=== PATIENT | female | born 1930 | race Caucasian/White ===

== ENCOUNTER 2016-03-23 07:22 | Emergency (ER) | payer OTHER ==
[2016-03-23 07:30] VITALS: TEMP 97.7
--- NOTE | 2016-03-23 07:52 | CPEKG ---
Heart Rate: 77 RR Interval: 779 QRSD Interval: 82 QT Interval: 392 QTC Interval: 444 QRS [place]: 8 T Wave [place]: 17 EKG Severity - ABNORMAL ECG - EKG Impression: ATRIAL FIBRILLATION, V-RATE 65-91 EKG Impression: LOW VOLTAGE IN FRONTAL LEADS EKG Impression: similar to previous Electronically Signed By: Jose Harris 23-Mar-2016 08:05:51
--- NOTE | 2016-03-23 08:07 | EDPHY ---
H & P Stated Complaint: hbp and epigastric pain Time Seen by Provider: 03/23/16 07:53 HPI/ROS: CHIEF COMPLAINT: Epigastric pain HISTORY OF PRESENT ILLNESS: The patient is a 86-year-old female who comes to the emergency department this morning complaining that she had elevated blood pressure and epigastric pain all night. It kept her awake throughout the night doing crossword puzzles. She has a history of high blood pressure and takes losartan 50 mg twice daily as well as Lopressor 50 mg twice daily. She took her normal doses yesterday but noticed that hurt diastolic blood pressure was 1/ 25. It seemed to improve before she went to bed. She also complained of mild epigastric pain which she is not used to. She that maybe it was heartburn or her gallbladder. She does take Coumadin for history of atrial fibrillation. Her symptoms resolved around 7:00 a.m. this morning when she arrived at the emergency department. She denies shortness of breath or diaphoresis. Is not worsened by exertion. No vomiting or diarrhea REVIEW OF SYSTEMS: Constitutional: denies: chills, fever, recent illness, recent injury EENTM: denies: blurred vision, double vision, nose congestion Respiratory: denies: cough, shortness of breath Cardiac: See HPI Gastrointestinal/Abdominal: See HPI Genitourinary: denies: dysuria, frequency, hematuria, pain Musculoskeletal: denies: joint pain, muscle pain Skin: denies: lesions, rash, jaundice, bruising Neurological: denies: headache, numbness, paresthesia, tingling, dizziness, weakness Hematologic/Lymphatic: denies: blood clots, easy bleeding, easy bruising Immunologic/allergic: denies: HIV/AIDS, transplant EXAM: GENERAL: Well-appearing, obese. HEAD: Atraumatic, normocephalic. EYES: Pupils equal round and reactive to light, extraocular movements intact, sclera anicteric, conjunctiva are normal. ENT: TMs normal, nares patent, oropharynx clear without exudates. Moist mucous membranes. NECK: Normal range of motion, supple without lymphadenopathy or JVD. LUNGS: Breath sounds clear to auscultation bilaterally and equal. No wheezes rales or rhonchi. HEART: Regular rate and rhythm without murmurs, rubs or gallops. ABDOMEN: Soft, nontender, normoactive bowel sounds. No guarding, no rebound. No masses appreciated. BACK: No CVA tenderness, no spinal tenderness, step-offs or deformities EXTREMITIES: Normal range of motion, no pitting or edema. No clubbing or cyanosis. NEUROLOGICAL: Cranial nerves II through XII grossly intact. Normal speech, normal gait. 5/5 strength, normal movement in all extremities, normal sensation PSYCH: Normal mood, normal affect. SKIN: Warm, dry, normal turgor, no visible rashes or lesions. Source: Patient Exam Limitations: No limitations - Personal History Current Tetanus/Diphtheria Vaccine: Unsure Tetanus Vaccine Date: < 10 YEARS - Medical/Surgical History Hx Asthma: No Hx Chronic Respiratory Disease: No Hx Diabetes: No Hx Cardiac Disease: Yes Hx Renal Disease: No Hx Cirrhosis: No Hx Alcoholism: No Hx HIV/AIDS: No Hx Splenectomy or Spleen Trauma: No Other PMH: SEPIDEH, A-FIB, "INTESTINAL BLOOD CLOT" , HTN, HYPERLIPIDEMIA - Family History Significant Family History: Hypertension - Social History Smoking Status: Never smoked Alcohol Use: None Drug Use: None Constitutional: Initial Vital Signs Temperature (C) 36.5 C 03/23/16 07:27 Heart Rate 112 H 03/23/16 07:27 Respiratory Rate 20 03/23/16 07:27 Blood Pressure 159/107 H 03/23/16 07:27 O2 Sat (%) 93 03/23/16 07:27 O2 Delivery Mode Room Air Allergies/Adverse Reactions: atorvastatin calcium [From Lipitor] Allergy (Intermediate, Verified 03/23/16 07: 24) Muscle Aches Mbyztmu-Dpn-Zuz Reductase Inhibitor Allergy (Intermediate, Verified 03/23/16 07: 24) Muscle Aches Home Medications: Medication Instructions Recorded Aspirin [Aspirin 81mg (*)] 81 mg PO DAILY 09/27/14 Herbals/Supplements -Info Only 1 ea PO DAILY 09/27/14 Losartan Potassium [Cozaar] 50 mg PO BID 09/27/14 Magnesium Oxide [Magnesium Oxide 250 mg PO DAILY 09/27/14 500 mg] Metoprolol Tartrate [Lopressor 50 50 mg PO BID 09/27/14 mg (*)] Tears/Hypromellose [Natural 1 - 2 drops EACHEYE DAILY PRN 09/27/14 Balance] Vit C/Dl-E AC/Lut/Copper/Znox 1 each PO DAILY 09/27/14 [Preservision Softgel] Warfarin Sodium [Coumadin 5MG (*)] 5 mg PO DAILY16 09/27/14 Furosemide [Lasix 20 MG (*)] 20 mg PO DAILY #0 tab 09/28/14 Medical Decision Making - Diagnostics EKG Interpretation: An EKG obtained and was read and documented in trace view. Please see trace view for full reading and report. Atrial fibrillation, unchanged from previous , rate 77 Imaging: X-ray: chest x-ray was obtained. I viewed the images myself on the PACS system. My interpretation of the images is: No infiltrate. The radiologist interpretation is mild cardiomegaly, peribronchial thickening. ED Course/Re-evaluation: 9:15 a.m. Patient remains asymptomatic. We discussed her lab work and EKG which are reassuring. She is eager to go home. She declines further workup or testing. She thinks she had heartburn and will try taking Tums next time. She will follow up with Dr. Thomas. Discussed indications for returning to the emergency department. Negative troponin is reassuring considering the duration of her symptoms. Differential Diagnosis: Partial list of the Differential diagnosis considered include but were not limited to; acute coronary disease, arrhythmia, indigestion, peptic ulcer disease and although unlikely based on the history and physical exam, I also considered biliary disease, pancreatitis, liver disease, pneumonia, PE . I discussed these differential diagnoses and the plan with the patient as well as the usual and expected course. The patient understands that the diagnosis is provisional and that in medicine we are not always correct and that further workup is often warranted. Usual and customary warnings were given. All of the patient's questions were answered. The patient was instructed to return to the emergency department should the symptoms at all worsen or return, otherwise to followup with the physician as we discussed. - Data Points Laboratory Results: Laboratory Results 03/23/16 08:35 03/23/16 08:35 03/23/16 08:35 WBC 6.97 10^3/uL (3.80-9.50) RBC 4.26 10^6/uL (4.18-5.33) Hgb 12.7 g/dL (12.6-16.3) Hct 37.9 L % (38.0-47.0) MCV 89.0 fL (81.5-99.8) MCH 29.8 pg (27.9-34.1) MCHC 33.5 g/dL (32.4-36.7) RDW 14.6 % (11.5-15.2) Plt Count 155 10^3/uL (150-400) MPV 12.9 H fL (8.7-11.7) Neut % (Auto) 81.4 H % (39.3-74.2) Lymph % (Auto) 9.5 L % (15.0-45.0) Jack % (Auto) 7.3 % (4.5-13.0) Eos % (Auto) 0.9 % (0.6-7.6) Baso % (Auto) 0.6 % (0.3-1.7) Nucleat RBC Rel Count 0.0 % (0.0-0.2) Absolute Neuts (auto) 5.68 10^3/uL (1.70-6.50) Absolute Lymphs (auto) 0.66 L 10^3/uL (1.00-3.00) Absolute Monos (auto) 0.51 10^3/uL (0.30-0.80) Absolute Eos (auto) 0.06 10^3/uL (0.03-0.40) Absolute Basos (auto) 0.04 10^3/uL (0.02-0.10) Absolute Nucleated RBC 0.00 10^3/uL (0-0.01) Immature Gran % 0.3 % (0.0-1.1) Immature Gran # 0.02 10^3/uL (0.00-0.10) Sodium 139 mEq/L (134-144) Potassium 4.6 mEq/L (3.5-5.2) Chloride 102 mEq/L (97-110) Carbon Dioxide 24 mEq/l (22-31) Anion Gap 13 mEq/L (8-16) BUN 27 H mg/dL (7-23) Creatinine 0.8 mg/dL (0.6-1.0) Estimated GFR > 60 Glucose 172 H mg/dL (70-100) Calcium 9.7 mg/dL (8.5-10.4) Total Bilirubin 0.7 mg/dL (0.1-1.4) Conjugated Bilirubin 0.2 mg/dL (0.0-0.5) Unconjugated Bilirubin 0.5 mg/dL (0.0-1.1) AST 20 IU/L (14-46) ALT 36 IU/L (9-52) Alkaline Phosphatase 69 IU/L (38-126) Troponin I < 0.012 ng/mL (0-0.034) Total Protein 7.2 g/dL (6.3-8.2) Albumin 4.1 g/dL (3.5-5.0) Lipase 30.0 IU/L (23-300) Departure - Departure Disposition: Home, Routine, Self-Care Clinical Impression: Epigastric abdominal pain Condition: Fair Instructions: Epigastric Pain (ED) Referrals: Heber Thomas MD [Primary Care Provider] - As per Instructions
[2016-03-23 08:42] LABS: % IMMATURE GRANULYOCYTES 0.3 % (0.0-1.1); ABSOLUTE IMMATURE GRANULOCYTES 0.02 10^3/uL (0.00-0.10); ADD DIFF? NO; ADD MORPH? NO; ADD SCAN? NO; ATYPICAL LYMPHOCYTE FLAG 0 (0-99); FRAGMENT RBC FLAG 0 (0-99); HEMATOCRIT 37.9 % (38.0-47.0); HEMOGLOBIN 12.7 g/dL (12.6-16.3); LEFT SHIFT FLG 0 (0-99); LIPEMIA HEMOLYSIS FLAG 80 (0-99); MEAN CELL HEMOGLOBIN 29.8 pg (27.9-34.1); MEAN CELL HEMOGLOBIN CONCENTR. 33.5 g/dL (32.4-36.7); MEAN PLATELET VOLUME 12.9 fL (8.7-11.7); PLATELET CLUMPS FLAG 0 (0-99); PLATELET COUNT 155 10^3/uL (150-400); RED BLOOD CELL COUNT 4.26 10^6/uL (4.18-5.33); RED CELL DISTRIBUTION WIDTH 14.6 % (11.5-15.2)
[2016-03-23 08:54] LABS: ALANINE AMINOTRANSFERASE 36 IU/L (9-52); ALBUMIN 4.1 g/dL (3.5-5.0); ALKALINE PHOSPHATASE 69 IU/L (38-126); ANION GAP 13 mEq/L (8-16); ASPARTATE AMINOTRANSFERASE 20 IU/L (14-46); BILIRUBIN,TOTAL 0.7 mg/dL (0.1-1.4); BILIRUBIN-CONJUGATED 0.2 mg/dL (0.0-0.5); BILIRUBIN-UNCONJUGATED 0.5 mg/dL (0.0-1.1); CALCIUM 9.7 mg/dL (8.5-10.4); CARBON DIOXIDE 24 mEq/l (22-31); CHLORIDE 102 mEq/L (97-110); CREATININE 0.8 mg/dL (0.6-1.0); GLOMERULAR FILTRATION RATE > 60; GLUCOSE 172 mg/dL (70-100); POTASSIUM 4.6 mEq/L (3.5-5.2); SODIUM 139 mEq/L (134-144); TOTAL PROTEIN 7.2 g/dL (6.3-8.2)
--- NOTE | 2016-03-23 08:56 | DX ---
Chest, PA Upright and Lateral Views March 23, 2016, at 7:52 a.m. Clinical History: 86-year-old female with shortness of breath, and a rapid heart beat and chest pain. Comparison Study: Chest, dated 09/27/2014. Findings: The cardiac silhouette remains enlarged. There is peribronchial thickening and mild pulmona ry venous hypertension. There is no focal alveolar consolidation or pleural effusion. A retrocardiac hiatal hernia is seen with an air-fluid level. There is mild eventration of the anterior right hemidi aphragm. There is some linear scarring in the left midlung. There is no pneumothorax. Mild biapical p leural thickening is seen. There is a thoracolumbar junction kyphosis with multilevel degenerative ch reji. Impression: 1. Cardiomegaly with peribronchial thickening, and mild pulmonary venous hypertension. 2. Linear scarring in the left midlung. 3. Large retrocardiac hiatal hernia.
[2016-03-23 09:05] LABS: TROPONIN I < 0.012 ng/mL (0-0.034)
[2016-03-23 09:25] VITALS: BP 157/86; PULSE 76; RESP 18; O2SAT 96
== END 2016-03-23 09:25 | disposition home or self-care (01) ==
DX: R10.13 Epigastric pain (principal); I10 Essential (primary) hypertension; Z79.01 Long term (current) use of anticoagulants; Z79.82 Long term (current) use of aspirin

== ENCOUNTER → 2016-04-23 | Outpatient (CLI) | payer OTHER | LOC: BMCIMAGING 11:07 | PROVIDERS: ATTEND Internal Medicine | DX: Z13.820 Encounter for screening for osteoporosis (principal); M85.80 Other specified disorders of bone density and structure, unspecified site ==

== ENCOUNTER → 2016-05-20 | Outpatient (CLI) | payer OTHER | LOC: BMCIMAGING 14:24 | PROVIDERS: ATTEND Podiatrist Foot & Ankle Surgery | DX: Z03.89 Encounter for observation for other suspected diseases and conditions ruled out (principal); M19.071 Primary osteoarthritis, right ankle and foot ==

== ENCOUNTER 2016-09-06 18:53 | Emergency (ER) | payer OTHER ==
[2016-09-06 19:20] VITALS: BP 150/101; PULSE 78; RESP 16; TEMP 98.2; O2SAT 91
--- NOTE | 2016-09-06 20:11 | EDPHY ---
H & P Stated Complaint: pt says she accidentally poked her fingernail into L eye, blood in sclera Time Seen by Provider: 09/06/16 20:02 HPI/ROS: CHIEF COMPLAINT: Subconjunctival hemorrhage HISTORY OF PRESENT ILLNESS: Patient is an 86-year-old female who comes to the emergency department complaining of a subconjunctival hemorrhage. It developed about an hour ago after she accidentally poked herself the corner of her left eye. It is not circumferential. She denies pain. She denies vision changes. She denies headache. She takes warfarin for history of atrial fibrillation. She had her INR checked last week and states that it was appropriate. She has not had any medication changes recently and states that her INR is very stable. REVIEW OF SYSTEMS: Constitutional: denies: chills, fever, recent illness, recent injury EENTM: See HPI denies: blurred vision, double vision, nose congestion Respiratory: denies: cough, shortness of breath Cardiac: denies: chest pain, irregular heart rate, lightheadedness, palpitations Gastrointestinal/Abdominal: denies: abdominal pain, diarrhea, nausea, vomiting, blood streaked stools Genitourinary: denies: dysuria, frequency, hematuria, pain Musculoskeletal: denies: joint pain, muscle pain Skin: denies: lesions, rash, jaundice, bruising Neurological: denies: headache, numbness, paresthesia, tingling, dizziness, weakness Hematologic/Lymphatic: denies: blood clots, easy bleeding, easy bruising Immunologic/allergic: denies: HIV/AIDS, transplant EXAM: GENERAL: Well-appearing, well-nourished and in no acute distress. HEAD: Atraumatic, normocephalic. EYES: Pupils equal round and reactive to light, extraocular movements intact, circumferential subconjunctival hematoma, normal cornea, normal retina, conjunctiva are normal. ENT: TMs normal, nares patent, oropharynx clear without exudates. Moist mucous membranes. NECK: Normal range of motion, supple without lymphadenopathy or JVD. LUNGS: Breath sounds clear to auscultation bilaterally and equal. No wheezes rales or rhonchi. HEART: Regular rate and rhythm without murmurs, rubs or gallops. ABDOMEN: Soft, nontender, normoactive bowel sounds. No guarding, no rebound. No masses appreciated. BACK: No CVA tenderness, no spinal tenderness, step-offs or deformities EXTREMITIES: Normal range of motion, no pitting or edema. No clubbing or cyanosis. NEUROLOGICAL: Cranial nerves II through XII grossly intact. Normal speech, normal gait. 5/5 strength, normal movement in all extremities, normal sensation PSYCH: Normal mood, normal affect. SKIN: Warm, dry, normal turgor, no visible rashes or lesions. Source: Patient, Family Exam Limitations: No limitations - Personal History Tetanus Vaccine Date: < 10 YEARS - Medical/Surgical History Hx Asthma: No Hx Chronic Respiratory Disease: No Hx Diabetes: No Hx Cardiac Disease: Yes Hx Renal Disease: No Hx Cirrhosis: No Hx Alcoholism: No Hx HIV/AIDS: No Hx Splenectomy or Spleen Trauma: No Other PMH: SEPIDEH, A-FIB, "INTESTINAL BLOOD CLOT" , HTN, HYPERLIPIDEMIA - Family History Significant Family History: No pertinent family hx - Social History Smoking Status: Never smoked Alcohol Use: Sober Drug Use: None Constitutional: Initial Vital Signs Temperature (C) 36.8 C 09/06/16 19:16 Heart Rate 78 09/06/16 19:16 Respiratory Rate 16 09/06/16 19:16 Blood Pressure 150/101 H 09/06/16 19:16 O2 Sat (%) 91 L 09/06/16 19:16 O2 Delivery Mode Room Air Allergies/Adverse Reactions: atorvastatin calcium [From Lipitor] Allergy (Intermediate, Verified 09/06/16 19: 20) Muscle Aches Khtvsgi-Ypt-Kwt Reductase Inhibitor Allergy (Intermediate, Verified 09/06/16 19: 20) Muscle Aches Home Medications: Medication Instructions Recorded Aspirin [Aspirin 81mg (*)] 81 mg PO DAILY 09/27/14 Herbals/Supplements -Info Only 1 ea PO DAILY 09/27/14 Losartan Potassium [Cozaar] 50 mg PO BID 09/27/14 Magnesium Oxide [Magnesium Oxide 250 mg PO DAILY 09/27/14 500 mg] Metoprolol Tartrate [Lopressor 50 50 mg PO BID 09/27/14 mg (*)] Tears/Hypromellose [Natural 1 - 2 drops EACHEYE DAILY PRN 09/27/14 Balance] Vit C/Dl-E AC/Lut/Copper/Znox 1 each PO DAILY 09/27/14 [Preservision Softgel] Warfarin Sodium [Coumadin 5MG (*)] 5 mg PO DAILY16 09/27/14 Furosemide [Lasix 20 MG (*)] 20 mg PO DAILY #0 tab 09/28/14 Medical Decision Making ED Course/Re-evaluation: The patient has a subconjunctival hematoma, no vision changes. No corneal abrasion, we discussed treatment with eyedrops and follow up with her carbon dioxide operator next week. She is happy with this and declines further workup or testing. Differential Diagnosis: Partial list of the Differential diagnosis considered include but were not limited to; subconjunctival hemorrhage, corneal abrasion and although unlikely based on the history and physical exam, I also considered retinal detachment, glaucoma, intracranial hemorrhage. I discussed these differential diagnoses and the plan with the patient as well as the usual and expected course. The patient understands that the diagnosis is provisional and that in medicine we are not always correct and that further workup is often warranted. Usual and customary warnings were given. All of the patient's questions were answered. The patient was instructed to return to the emergency department should the symptoms at all worsen or return, otherwise to followup with the physician as we discussed. Departure - Departure Disposition: Home, Routine, Self-Care Clinical Impression: Subconjunctival hemorrhage of left eye Condition: Fair Instructions: Subconjunctival Hemorrhage (ED) Referrals: Jigna Charles MD [Primary Care Provider] - As per Instructions
== END 2016-09-06 20:12 | disposition home or self-care (01) ==
DX: S05.92XA Unspecified injury of left eye and orbit, initial encounter (principal); I10 Essential (primary) hypertension; Z79.01 Long term (current) use of anticoagulants; Z79.82 Long term (current) use of aspirin; X58.XXXA Exposure to other specified factors, initial encounter

== ENCOUNTER → 2016-10-27 | Outpatient (CLI) | payer OTHER | LOC: FIMAGING 10:56 | PROVIDERS: ATTEND Internal Medicine | DX: E83.52 Hypercalcemia (principal); E21.3 Hyperparathyroidism, unspecified | CPT/HCPCS: 78070; A9500 ==

== ENCOUNTER → 2016-11-02 | Outpatient (CLI) | payer OTHER | LOC: BMCIMAGING 15:03 | PROVIDERS: ATTEND Internal Medicine Endocrinology, Diabetes & Metabolism | DX: E04.9 Nontoxic goiter, unspecified (principal) | CPT/HCPCS: 76536-PO ==

== ENCOUNTER → 2017-04-18 | Outpatient (CLI) | payer OTHER | LOC: BMCIMAGING 16:00 | PROVIDERS: ATTEND Family Medicine | DX: J40 Bronchitis, not specified as acute or chronic (principal); K44.9 Diaphragmatic hernia without obstruction or gangrene; I50.9 Heart failure, unspecified; I27.20 Pulmonary hypertension, unspecified ==

== ENCOUNTER 2018-01-29 11:39 | Emergency (ER) | payer OTHER ==
[2018-01-29] MEDS ORDERED: NS 500 ML IV ONE (12:08)
[2018-01-29 12:57] LABS: PLATELET COUNT 137 10^3/uL (150-400)
[2018-01-29 13:05] LABS: INR 3.15 (0.83-1.16); PROTIME(PATIENT) 32.2 SEC (12.0-15.0)
--- NOTE | 2018-01-29 13:40 | EDPHY ---
HPI/HX/ROS/PE/MDM Narrative: CLINICAL IMPRESSION: Intermittent diarrhea, supratherapeutic INR ASSESSMENT/PLAN: 87-year-old female presents to the emergency department with complaints of intermittent nonbloody diarrhea for the last 2 weeks. No associated abdominal pain, nausea, vomiting, fever, chills, UTI symptoms or flank pain. Patient was unable to provide urine and stool in the ED. Labs are reassuring, no evidence of leukocytosis, renal insufficiency, electrolyte imbalance or metabolic disturbance. Abdomen is soft with no focal peritoneal findings. Vital signs stable. I encouraged patient to see her primary care provider in the next 24- 48 hours. Stool collection kit and GI pathogen order form given to the patient for collection at home and return to laboratory. She was found to be supratherapeutic on her INR at 3.5. She did take today's dose already and I recommend she stop tomorrow's dose and contact PCP for further recommendations. Her daughter is with her today and lives with her and is in agreement to discharge recommendations. Warning signs return to ED sooner outlined in person and discharge papers. DIFFERENTIAL DX: Abdominal pain includes but not limited to urinary tract infection, pyelonephritis, infection, ovarian torsion, ovarian cyst, uterine fibroids, acute appendicitis, acute diverticulitis, small-bowel obstruction, constipation , diarrhea, infectious diarrhea, dehydration, electrolyte imbalance ED PROCEDURES: See lab results below ED COURSE: 1:30 p.m.: Patient reassessed, labs reviewed, no evidence of a renal insufficiency, electrolyte imbalance, metabolic disturbance. Patient continues to feel well. She is complaining of a mild headache but does not want Tylenol for this. She will try to give a urine sample but has been unsuccessful in providing stool sample. Will send with stool collection kit and orders. Encouraged PCP recheck tomorrow. Patient is also slightly supratherapeutic on her INR at 3.5. I recommend she not take tomorrow's dose and contact her PCP for further directions. Patient already took today's dose of Coumadin. 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 No associated nausea, vomiting, unexplained weight loss, UTI symptoms, abdominal pain or flank pain. She has not seen her primary care provider for this. She has been intermittently using Pepto-Bismol but stops because her stools turned dark colored. She has not seen bright red stools. She does not currently have dark stools and is not currently taking Pepto-Bismol. She has not traveled recently. No recent antibiotics or new medications. She did however recently start metformin. She has been able to stay well-hydrated. 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 ENT: No sore throat, congestion, ear pain. Cardiovascular: No chest pain, no palpitations. Respiratory: No cough, no shortness of breath. Gastrointestinal: No abdominal pain, no vomiting, + diarrhea. Genitourinary: No hematuria, dysuria, flank pain, pelvic pain Musculoskeletal: No back pain, joint swelling, joint pain, myalgias. Skin: No rashes, color change. Neurological: No headache, dizziness, weakness. PHYSICAL EXAM: General Appearance: Alert, oriented, appropriate, cooperative, NAD, well hydrated, non-toxic appearing, VSS, no hypoxia, obese. HEENT: Oropharynx clear is no erythema or exudates, no tonsillar hypertrophy or asymmetry. Dentition without abnormality. Neck: Supple, nontender, no lymphadenopathy, no midline pain, FROM, no meningismus. Respiratory: There are no retractions, lungs are clear to auscultation. Cardiac: Regular rate and rhythm, no murmurs or gallops. Gastrointestinal: Abdomen is soft, nontender, bowel sounds normal, no masses/ hernia, no rigidity, guarding or focal peritoneal findings. Neurological: Alert and oriented x 3, CN 2-12 grossly intact, normal gait no ataxia, DTR's intact, normal sensation and strength Skin: Warm, dry, no rashes, no nodules on palpation. Musculoskeletal: Extremities are symmetrical, full range of motion, no tenderness, deformity, swelling, or erythema. Psychiatric: Patient is oriented X 3, there is no agitation. MEDICAL DECISION MAKING: Patient was seen independently. Secondary supervising physician at time of evaluation was Dr. Sorenson . Diagnosis: Intermittent diarrhea x2 weeks, supratherapeutic INR. New, requires workup Summary: See Assessment and Plan for summary of ED visit Clinical lab tests: ordered / reviewed. Decision to obtain medical records or history from someone other than the patient: Patient's daughter Patient Progress: Stable. - Data Points Laboratory Results: Laboratory Results 01/29/18 12:48 01/29/18 12:48 01/29/18 01/29/18 12 12:48 12:48 12:48 WBC 4.53 10^3/uL 10^3/uL (3.80-9.50) RBC 4.27 10^6/uL 10^6/uL (4.18-5.33) Hgb 12.6 g/dL g/dL (12.6-16.3) Hct 39.5 % % (38.0-47.0) MCV 92.5 fL fL (81.5-99.8) MCH 29.5 pg pg (27.9-34.1) MCHC 31.9 g/dL L g/dL (32.4-36.7) RDW 14.6 % % (11.5-15.2) Plt Count 137 10^3/uL L 10^3/uL (150-400) MPV 12.7 fL H fL (8.7-11.7) Neut % (Auto) 76.0 % H % (39.3-74.2) Lymph % (Auto) 13.2 % L % (15.0-45.0) [place] % (Auto) 9.3 % % (4.5-13.0) Eos % (Auto) 1.1 % % (0.6-7.6) Baso % (Auto) 0.2 % L % (0.3-1.7) Nucleat RBC Rel Count 0.0 % % (0.0-0.2) Absolute Neuts (auto) 3.44 10^3/uL 10^3/uL (1.70-6.50) Absolute Lymphs (auto) 0.60 10^3/uL L 10^3/uL (1.00-3.00) Absolute Monos (auto) 0.42 10^3/uL 10^3/uL (0.30-0.80) Absolute Eos (auto) 0.05 10^3/uL 10^3/uL (0.03-0.40) Absolute Basos (auto) 0.01 10^3/uL L 10^3/uL (0.02-0.10) Absolute Nucleated RBC 0.00 10^3/uL 10^3/uL (0-0.01) Immature Gran % 0.2 % % (0.0-1.1) Immature Gran # 0.01 10^3/uL 10^3/uL (0.00-0.10) PT 32.2 SEC H SEC (12.0-15.0) INR 3.15 H (0.83-1.16) Sodium 135 mEq/L mEq/L (135-145) Potassium 4.5 mEq/L mEq/L (3.5-5.2) Chloride 106 mEq/L mEq/L (97-110) Carbon Dioxide 21 mEq/l L mEq/l (22-31) Anion Gap 8 mEq/L mEq/L (6-14) BUN 21 mg/dL mg/dL (7-23) Creatinine 0.6 mg/dL mg/dL (0.6-1.0) Estimated GFR > 60 Glucose 126 mg/dL H mg/dL (70-100) Calcium 9.6 mg/dL mg/dL (8.5-10.4) Total Bilirubin 0.5 mg/dL mg/dL (0.1-1.4) AST 26 IU/L IU/L (14-46) ALT 28 IU/L IU/L (9-52) Alkaline Phosphatase 61 IU/L IU/L (38-126) Total Protein 6.9 g/dL g/dL (6.3-8.2) Albumin 4.1 g/dL g/dL (3.5-5.0) Medications Given: Discontinued Medications Sodium Chloride (Ns) 500 mls @ 0 mls/hr IV EDNOW ONE; Wide Open PRN Reason: Protocol Stop: 01/29/18 12:09 Last Admin: 01/29/18 12:42 Dose: 500 mls General Time Seen by Provider: 01/29/18 11:54 Initial Vital Signs: Initial Vital Signs Temperature (C) 36.5 C 01/29/18 11:46 Heart Rate 78 01/29/18 11:46 Respiratory Rate 16 01/29/18 11:46 Blood Pressure 137/81 H 01/29/18 11:46 O2 Sat (%) 95 01/29/18 11:46 O2 Delivery Mode Room Air Allergies/Adverse Reactions: atorvastatin calcium [From Lipitor] Allergy (Intermediate, Verified 09/06/16 19: 20) Muscle Aches [id number] Reductase Inhibitor Allergy (Intermediate, Verified 09/06/16 19: 20) Muscle Aches Home Medications: Medication Instructions Recorded Lasix 01/29/18 Losartan Potassium 01/29/18 Metformin HCl 01/29/18 Warfarin Sodium 01/29/18 Departure - Departure Disposition: Home, Routine, Self-Care Clinical Impression: Supratherapeutic INR Diarrhea Qualifiers: Diarrhea type: unspecified type Qualified Code(s): R19.7 - Diarrhea, unspecified Condition: Good Instructions: Acute Diarrhea (ED) Additional Instructions: DISCHARGE INSTRUCTIONS FROM YOUR DOCTOR Thank you for visiting our emergency department today. Please keep in mind that discharge from the emergency department does not mean that there is nothing wrong - it simply means that we have not identified an emergency condition that requires further evaluation or treatment in the hospital. You should always plan to follow up with primary care for re-evaluation of your condition in the next 2-3 days. If you have been referred to a specialist, please call as soon as possible (today or tomorrow) to schedule your follow up appointment at the appropriate time. Your labs today are reassuring. We do not see an electrolyte imbalance or evidence of severe dehydration. Your INR is slightly elevated at 3.5. We recommend you. Tomorrow's dose of Coumadin and follow up with her primary care doctor in the next 24-48 hours for recheck. Please ask your primary care doctor how long you should stop Coumadin. A stool collection kit and orders were supplied today. Please obtain a stool sample at home and return to the laboratory at the hospital. Please return to the emergency department immediately for bloody stools, severe abdominal pain, lightheadedness, dizziness or fainting episodes, vomiting, inability to stay hydrated, or any other concerns. People present with illnesses and injuries in different ways, and it is always possible that we have missed something. You may always return for re-evaluation if symptoms worsen or if they are not improving or if you develop new/different symptoms. Again, thank you for choosing our emergency department. We hope that you feel better. Referrals: Jigna Charles MD [Primary Care Provider] - As per Instructions
[2018-01-29 14:09] VITALS: BP 137/87
== END 2018-01-29 14:00 | disposition home or self-care (01) ==
DX: R19.7 Diarrhea, unspecified (principal); E86.9 Volume depletion, unspecified

== ENCOUNTER → 2018-06-16 | Outpatient (CLI) | payer OTHER | LOC: BMCIMAGING 14:01 | PROVIDERS: ATTEND Family Medicine | DX: R91.8 Other nonspecific abnormal finding of lung field (principal); I51.7 Cardiomegaly; R09.89 Other specified symptoms and signs involving the circulatory and respiratory systems; K44.9 Diaphragmatic hernia without obstruction or gangrene ==